=== PATIENT | male | born 1960 | race Caucasian/White ===

== ENCOUNTER 2017-03-27 08:59 | Day surgery (SDC) | payer OTHER ==
[~2017-03-27 08:59] MED LIST: Lactated Ringers 1,000 ML IV SCH; Lidocaine 1%/Sod Bicarbonate in NS 8.4% 1 ML Syringe PRN; Sodium Chloride 0.9% 10 ML Syringe FLUSH PRN
--- NOTE | 2017-03-27 10:09 | PCM.PREANE ---
Preanesthetic Assessment - Procedure Proposed Procedure: Diagnostic EGD - Anesthesia/Transfusion/Family Hx Anesthesia History: Prior Anesthesia Without Reaction Family History of Anesthesia Reaction: No Transfusion History: No Prior Transfusion(s) - Review of Systems General: No Symptoms Pulmonary: Other (NATASHA with CPAP) Cardiovascular: No Symptoms Gastrointestinal: Other (GERD) Neurological: No Symptoms Other: Reports: None - Physical Assessment NPO Status Date: 03/26/17 NPO Status Time: 20:00 O2 Sat by Pulse Oximetry: 96 Respiratory Rate: 16 Vital Signs: Last Vital Signs Temp 36.6 C 03/27/17 09:05 Pulse 69 03/27/17 09:05 Resp 16 03/27/17 09:05 BP 156/86 H 03/27/17 09:05 Pulse Ox 96 03/27/17 09:05 Height: 1.75 m Weight: 75.75 kg ASA Class: 2 Mental Status: Alert & Oriented x3 Airway Class: Mallampati = 2 Dentition: Reports: Normal Dentition Thyro-Mental Finger Breadths: 3 Mouth Opening Finger Breadths: 3 ROM/Head Extension: Full Lungs: Clear to auscultation, Normal respiratory effort Cardiovascular: Regular Rate, Regular Rhythm - Allergies Allergies/Adverse Reactions: Allergies Allergy/AdvReac Type Severity Reaction Status Date / Time No Known Allergies Allergy Verified 03/24/17 11:17 - Blood Blood Available: No Product(s) Available: None - Acknowledgements Anesthesia Type Planned: MAC Pt an Appropriate Candidate for the Planned Anesthesia: Yes Alternatives and Risks of Anesthesia Discussed w Pt/Guardian: Yes Pt/Guardian Understands and Agrees with Anesthesia Plan: Yes PreAnesthesia Questionnaire Respiratory History: Reports: Sleep Apnea - Past Surgical History GI Surgical History: Reports: Appendectomy Neurological Surgical History: Reports: Other (See Below) Other Neurological Surgeries/Procedures: 2 back surgeries, neck surgery Musculoskeletal Surgical History: Reports: Carpal Tunnel, Other (See Below) Other Musculoskeletal Surgeries/Procedures:: bilateral carpal tunnel, toe surgery - SUBSTANCE USE Smoking Status *Q: Never Smoker Second Hand Smoke Exposure: No Recreational Drug Use History: No - HOME MEDS Home Medications: Home Meds Meloxicam 15 mg PO DAILY 03/24/17 [History] traZODone 50 mg PO DAILY 03/24/17 [History] - CURRENT (IN HOUSE) MEDS Current Meds: Current Medications Lactated Ringer's (Ringers, Lactated) 1,000 mls @ 125 mls/hr IV ASDIRECTED KEVIN Stop: 03/27/17 23:00 Lidocaine/Sodium Bicarbonate (Buffered Lidocaine 1% In Ns 8.4%) 0.25 ml .XX ONETIME PRN PRN Reason: Prior to IV Start Stop: 03/27/17 18:00 Sodium Chloride (Saline Flush) 10 ml FLUSH ASDIRECTED PRN PRN Reason: Keep Vein Open Stop: 03/27/17 18:00
[2017-03-27] MEDS ORDERED: fentaNYL 100 MCG/2 ML SDV ONE (10:51)
[2017-03-27] MEDS ORDERED: Propofol 200 MG/20 ML SDV ONE (10:51)
[2017-03-27] MEDS ORDERED: Midazolam 1 MG/ML 2 ML SDV ONE (10:52)
--- NOTE | 2017-03-27 11:03 | PCM.OPNOTE ---
- General Post-Op/Procedure Note Date of Surgery/Procedure: 03/27/17 Operative Procedure(s): egd with bx Pre Op Diagnosis: gerd Post-Op Diagnosis: Same Anesthesia Technique: MAC Primary Surgeon: Massimo Sun Complications: None Condition: Good
--- NOTE | 2017-03-27 11:08 | PCM48HPAN ---
Post Anesthesia Note - EVALUATION WITHIN 48HRS OF ANESTHETIC Vital Signs in Normal Range: Yes Patient Participated in Evaluation: Yes Respiratory Function Stable: Yes Airway Patent: Yes Cardiovascular Function Stable: Yes Hydration Status Stable: Yes Pain Control Satisfactory: Yes Nausea and Vomiting Control Satisfactory: Yes Mental Status Recovered: Yes
[2017-03-27 11:44] VITALS: BP 137/92
--- NOTE | 2017-03-28 07:31 | OR ---
DATE OF OPERATION: 03/27/2017 SURGEON: Massimo Sun MD PREOPERATIVE DIAGNOSIS: Gastroesophageal reflux disease, unresponsive to proton pump inhibitors. POSTOPERATIVE DIAGNOSIS: Gastroesophageal reflux disease, unresponsive to proton pump inhibitors. OPERATION PERFORMED: Esophagogastroduodenoscopy with biopsy. FINDINGS: There were mild incompetent hiatus with irregular GE junction which suspected the erosions. Second portion of the duodenum, duodenal bulb, pyloric channel, antrum, body and cardia of the stomach and fundus and balance esophagus free of any acute disease. ANESTHESIA: IV sedation. DESCRIPTION OF PROCEDURE: The patient was taken to the GI room, connected to monitoring equipment, given IV sedation, placed in left lateral position. Bite block was inserted. Video Olympus gastroscope was placed in the posterior oropharynx under direct vision, threaded past the cricopharyngeus, down the esophagus, into the stomach. The stomach was insufflated and the scope passed through the pylorus to the second portion of the duodenum. The second portion of the duodenum and duodenal bulb were unremarkable as was the antrum, body, cardia, stomach, and fundus. J- maneuver did not show hiatal hernia. Scope was withdrawn to the GE junction which is irregular and some erosions and multiple biopsies were taken of this area. This was located at about 42 cm. Rest of the esophagus was viewed as the scope withdrawn unremarkable. The patient tolerated the procedure, sent to recovery room in a stable condition, to be followed up in the clinic. ESTIMATED BLOOD LOSS: MMODAL /[id number]
== END 2017-03-27 11:47 | disposition home or self-care (01) ==
LOC: JD.SDS 08:59
PROVIDERS: ATTEND Surgery
DX: K31.89 Other diseases of stomach and duodenum (principal); K21.9 Gastro-esophageal reflux disease without esophagitis; G47.33 Obstructive sleep apnea (adult) (pediatric); Z90.49 Acquired absence of other specified parts of digestive tract; Z98.890 Other specified postprocedural states; Z79.899 Other long term (current) drug therapy; Z87.891 Personal history of nicotine dependence
CPT/HCPCS: 43239; J2250; J3010; J7120; 88305; J2704

== ENCOUNTER 2017-04-19 07:16 | Day surgery (SDC) | payer OTHER ==
[~2017-04-19 07:16] MED LIST changes: +Bupivacaine 0.5%/EPINEPHrine 1:200,000 50 ML MDV ONE; +Lidocaine 1% with EPINEPHrine 1:100,000 20 ML MDV ONE
[2017-04-19] MEDS ORDERED: Propofol 200 MG/20 ML SDV ONE (07:19)
[2017-04-19] MEDS ORDERED: fentaNYL 250 MCG/5 ML SDV ONE (07:19)
[2017-04-19] MEDS ORDERED: Rocuronium 50 MG/5 ML Vial ONE (07:19)
[2017-04-19] MEDS ORDERED: ceFAZolin 1 GM Vial ONE ×2 (07:20→07:21)
--- NOTE | 2017-04-19 07:41 | PCM.PREANE ---
Preanesthetic Assessment - Anesthesia/Transfusion/Family Hx Anesthesia History: Prior Anesthesia Without Reaction Family History of Anesthesia Reaction: No Transfusion History: No Prior Transfusion(s) Intubation History: Unknown - Review of Systems General: No Symptoms Pulmonary: No Symptoms Cardiovascular: No Symptoms Gastrointestinal: No symptoms Neurological: No Symptoms Other: Reports: None - Physical Assessment NPO Status Date: 04/18/17 NPO Status Time: 20:00 Pulse: 70 O2 Sat by Pulse Oximetry: 98 Respiratory Rate: 16 Blood Pressure: 134/86 Temperature: 97.4 C Height: 1.75 m Weight: 75.75 kg ASA Class: 2 Mental Status: Alert & Oriented x3 Airway Class: Mallampati = 2 Dentition: Reports: Normal Dentition Thyro-Mental Finger Breadths: 3 Mouth Opening Finger Breadths: 3 ROM/Head Extension: Full Lungs: Clear to auscultation, Normal respiratory effort Cardiovascular: Regular Rate, Regular Rhythm - Allergies Allergies/Adverse Reactions: Allergies Allergy/AdvReac Type Severity Reaction Status Date / Time No Known Allergies Allergy Verified 04/18/17 15:56 - Acknowledgements Anesthesia Type Planned: General Anesthesia Pt an Appropriate Candidate for the Planned Anesthesia: Yes Alternatives and Risks of Anesthesia Discussed w Pt/Guardian: Yes Pt/Guardian Understands and Agrees with Anesthesia Plan: Yes PreAnesthesia Questionnaire HEENT History: Reports: Allergic Rhinitis, Hard of Hearing, Other (See Below) Other HEENT History: tinnitus, hearing loss, has bilateral hearing aids (doesn' t wear often) Cardiovascular History: Reports: None Respiratory History: Reports: Sleep Apnea (CPAP) Gastrointestinal History: Reports: Cholelithiasis, Colon Polyp, GERD, Other ( See Below) Other Gastrointestinal History: gallbladder polyps, esohpagitis Genitourinary History: Reports: BPH, Other (See Below) Other Genitourinary History: decreased urine output ELECTROLYTIC ETCHER History: Reports: None Musculoskeletal History: Reports: Arthritis, Other (See Below) (low back pain, back surgery x2, neck surgery C2-3 FROM noted) Other Musculoskeletal History: neck pain, bicipital tendinitis, should pain, low back pain, foot pain, chronic pain syndrom, carpal tunnel syndrome Neurological History: Reports: Migraines Psychiatric History: Reports: Depression, Other (See Below) Other Psychiatric History: etoh abuse history, insomnia Endocrine/Metabolic History: Reports: None Hematologic History: Reports: None Immunologic History: Reports: None Oncologic (Cancer) History: Reports: None Dermatologic History: Reports: Eczema - Past Surgical History Head Surgeries/Procedures: Reports: None HEENT Surgical History: Reports: Adenoidectomy, Tonsillectomy Cardiovascular Surgical History: Reports: None Respiratory Surgical History: Reports: None GI Surgical History: Reports: Appendectomy, Colonoscopy, EGD Female Surgical History: Reports: None Male Surgical History: Reports: None Endocrine Surgical History: Reports: None Neurological Surgical History: Reports: C-Spine (back x 2, neck C2-3), Other ( See Below) Other Neurological Surgeries/Procedures: 2 back surgeries, neck surgery c3-c4 fusion Musculoskeletal Surgical History: Reports: Carpal Tunnel, Shoulder Replacement ( (R) rotator cuff), Other (See Below) Other Musculoskeletal Surgeries/Procedures:: bilateral carpal tunnel, toe surgery, foot surgery, low back surgery x2 (L2-L5) neck surgery, shoulder surgery Oncologic Surgical History: Reports: None Dermatological Surgical History: Reports: None - Past Imaging History Past Imaging History: Reports: None, Sleep Study - SUBSTANCE USE Smoking Status *Q: Former Smoker (pt quit smoking x1 month) Second Hand Smoke Exposure: No Recreational Drug Use History: No - HOME MEDS Home Medications: Home Meds Meloxicam 15 mg PO DAILY 03/24/17 [History] Terazosin HCl [Terazosin] 2 mg PO BEDTIME 03/27/17 [History] Ascorbic Acid 500 mg PO DAILY 04/18/17 [History] Ca Carbonate/Vitamin D3/Vit K [Calcium + D Soft Chewable Tab] 1 tab PO BID 04/18 [History] Capsaicin 1 applic TOP BID PRN 04/18/17 [History] Clobetasol Propionate [Temovate] 1 applic TOP BID PRN 04/18/17 [History] Cyclobenzaprine [Flexeril] 10 mg PO BEDTIME PRN 04/18/17 [History] Echinacea [Echinacea Extract] 125 mg PO DAILY 04/18/17 [History] Ketoconazole 1 applic TOP DAILY PRN 04/18/17 [History] Multivitamin [Multivitamins] 1 tab PO DAILY 04/18/17 [History] Omeprazole 20 mg PO BID 04/18/17 [History] Ranitidine HCl [Zantac] 150 mg PO BID 04/18/17 [History] SUMAtriptan Succinate [Imitrex] 100 mg PO ASDIRECTED PRN 04/18/17 [History] Zinc Sulfate 220 mg PO DAILY 04/18/17 [History] traZODone HCl [Trazodone HCl] 150 mg PO BEDTIME 04/18/17 [History] - CURRENT (IN HOUSE) MEDS Current Meds: Current Medications Lactated Ringer's (Ringers, Lactated) 1,000 mls @ 125 mls/hr IV ASDIRECTED KEVIN Stop: 04/19/17 23:00 Lidocaine/Sodium Bicarbonate (Buffered Lidocaine 1% In Ns 8.4%) 0.25 ml .XX ONETIME PRN PRN Reason: Prior to IV Start Stop: 04/19/17 18:00 Sodium Chloride (Saline Flush) 10 ml FLUSH ASDIRECTED PRN PRN Reason: Keep Vein Open Stop: 04/19/17 18:00 Discontinued Medications Bupivacaine HCl/Epinephrine Bitart (Marcaine 0.5%/Epinephrine 1:200,000) Confirm Administered Dose 50 ml .ROUTE .STK-MED ONE Stop: 04/19/17 07:17 Cefazolin Sodium (Ancef) Confirm Administered Dose 1 gm .ROUTE .STK-MED ONE Stop: 04/19/17 07:21 Cefazolin Sodium (Ancef) Confirm Administered Dose 1 gm .ROUTE .STK-MED ONE Stop: 04/19/17 07:22 Fentanyl (Sublimaze) Confirm Administered Dose 250 mcg .ROUTE .STK-MED ONE Stop: 04/19/17 07:20 Lidocaine/Epinephrine (Xylocaine 1% With Epinephrine 1:100,000) Confirm Administered Dose 20 ml .ROUTE .STK-MED ONE Stop: 04/19/17 07:16 Propofol (Diprivan 20 Ml) Confirm Administered Dose 200 mg .ROUTE .STK-MED ONE Stop: 04/19/17 07:20 Rocuronium [place] (Zemuron) Confirm Administered Dose 50 mg .ROUTE .STK-MED ONE Stop: 04/19/17 07:20
--- NOTE | 2017-04-19 07:48 | PCM.PREANE ---
Preanesthetic Assessment - Anesthesia/Transfusion/Family Hx Anesthesia History: Prior Anesthesia Without Reaction Family History of Anesthesia Reaction: No Transfusion History: No Prior Transfusion(s) Intubation History: Unknown - Review of Systems Cardiovascular: No Symptoms, Other (EKG ordered per Dr Salvador. Awaiting prior to taking pt back to OR) Other: Reports: None - Physical Assessment NPO Status Date: 04/18/17 NPO Status Time: 20:00 Pulse: 70 O2 Sat by Pulse Oximetry: 98 Respiratory Rate: 16 Blood Pressure: 134/86 Temperature: 97.4 C Vital Signs: Last Vital Signs Temp 97.4 C H 04/19/17 07:45 Pulse 70 04/19/17 07:45 Resp 16 04/19/17 07:45 BP 134/86 04/19/17 07:45 Pulse Ox 98 04/19/17 07:45 Height: 1.75 m Weight: 75.75 kg - Allergies Allergies/Adverse Reactions: Allergies Allergy/AdvReac Type Severity Reaction Status Date / Time No Known Allergies Allergy Verified 04/18/17 15:56 PreAnesthesia Questionnaire HEENT History: Reports: Allergic Rhinitis, Hard of Hearing, Other (See Below) Other HEENT History: tinnitus, hearing loss, has bilateral hearing aids (doesn' t wear often) Cardiovascular History: Reports: None Respiratory History: Reports: Sleep Apnea (CPAP) Gastrointestinal History: Reports: Cholelithiasis, Colon Polyp, GERD, Other ( See Below) Other Gastrointestinal History: gallbladder polyps, esohpagitis Genitourinary History: Reports: BPH, Other (See Below) Other Genitourinary History: decreased urine output TREE THINNER History: Reports: None Musculoskeletal History: Reports: Arthritis, Other (See Below) (low back pain, back surgery x2, neck surgery C2-3 FROM noted) Other Musculoskeletal History: neck pain, bicipital tendinitis, should pain, low back pain, foot pain, chronic pain syndrom, carpal tunnel syndrome Neurological History: Reports: Migraines Psychiatric History: Reports: Depression, Other (See Below) Other Psychiatric History: etoh abuse history, insomnia Endocrine/Metabolic History: Reports: None Hematologic History: Reports: None Immunologic History: Reports: None Oncologic (Cancer) History: Reports: None Dermatologic History: Reports: Eczema - Past Surgical History Head Surgeries/Procedures: Reports: None HEENT Surgical History: Reports: Adenoidectomy, Tonsillectomy Cardiovascular Surgical History: Reports: None Respiratory Surgical History: Reports: None GI Surgical History: Reports: Appendectomy, Colonoscopy, EGD Female Surgical History: Reports: None Male Surgical History: Reports: None Endocrine Surgical History: Reports: None Neurological Surgical History: Reports: C-Spine (back x 2, neck C2-3), Other ( See Below) Other Neurological Surgeries/Procedures: 2 back surgeries, neck surgery c3-c4 fusion Musculoskeletal Surgical History: Reports: Carpal Tunnel, Shoulder Replacement ( (R) rotator cuff), Other (See Below) Other Musculoskeletal Surgeries/Procedures:: bilateral carpal tunnel, toe surgery, foot surgery, low back surgery x2 (L2-L5) neck surgery, shoulder surgery Oncologic Surgical History: Reports: None Dermatological Surgical History: Reports: None - Past Imaging History Past Imaging History: Reports: None, Sleep Study - SUBSTANCE USE Smoking Status *Q: Former Smoker (pt quit smoking x1 month) Second Hand Smoke Exposure: No Recreational Drug Use History: No - HOME MEDS Home Medications: Home Meds Meloxicam 15 mg PO DAILY 03/24/17 [History] Terazosin HCl [Terazosin] 2 mg PO BEDTIME 03/27/17 [History] Ascorbic Acid 500 mg PO DAILY 04/18/17 [History] Ca Carbonate/Vitamin D3/Vit K [Calcium + D Soft Chewable Tab] 1 tab PO BID 04/18 [History] Capsaicin 1 applic TOP BID PRN 04/18/17 [History] Clobetasol Propionate [Temovate] 1 applic TOP BID PRN 04/18/17 [History] Cyclobenzaprine [Flexeril] 10 mg PO BEDTIME PRN 04/18/17 [History] Echinacea [Echinacea Extract] 125 mg PO DAILY 04/18/17 [History] Ketoconazole 1 applic TOP DAILY PRN 04/18/17 [History] Multivitamin [Multivitamins] 1 tab PO DAILY 04/18/17 [History] Omeprazole 20 mg PO BID 04/18/17 [History] Ranitidine HCl [Zantac] 150 mg PO BID 04/18/17 [History] SUMAtriptan Succinate [Imitrex] 100 mg PO ASDIRECTED PRN 04/18/17 [History] Zinc Sulfate 220 mg PO DAILY 04/18/17 [History] traZODone HCl [Trazodone HCl] 150 mg PO BEDTIME 04/18/17 [History] - CURRENT (IN HOUSE) MEDS Current Meds: Current Medications Lactated Ringer's (Ringers, Lactated) 1,000 mls @ 125 mls/hr IV ASDIRECTED KEVIN Stop: 04/19/17 23:00 Lidocaine/Sodium Bicarbonate (Buffered Lidocaine 1% In Ns 8.4%) 0.25 ml .XX ONETIME PRN PRN Reason: Prior to IV Start Stop: 04/19/17 18:00 Sodium Chloride (Saline Flush) 10 ml FLUSH ASDIRECTED PRN PRN Reason: Keep Vein Open Stop: 04/19/17 18:00 Discontinued Medications Bupivacaine HCl/Epinephrine Bitart (Marcaine 0.5%/Epinephrine 1:200,000) Confirm Administered Dose 50 ml .ROUTE .STK-MED ONE Stop: 04/19/17 07:17 Cefazolin Sodium (Ancef) Confirm Administered Dose 1 gm .ROUTE .STK-MED ONE Stop: 04/19/17 07:21 Cefazolin Sodium (Ancef) Confirm Administered Dose 1 gm .ROUTE .STK-MED ONE Stop: 04/19/17 07:22 Fentanyl (Sublimaze) Confirm Administered Dose 250 mcg .ROUTE .STK-MED ONE Stop: 04/19/17 07:20 Lidocaine/Epinephrine (Xylocaine 1% With Epinephrine 1:100,000) Confirm Administered Dose 20 ml .ROUTE .STK-MED ONE Stop: 04/19/17 07:16 Propofol (Diprivan 20 Ml) Confirm Administered Dose 200 mg .ROUTE .STK-MED ONE Stop: 04/19/17 07:20 Rocuronium [place] (Zemuron) Confirm Administered Dose 50 mg .ROUTE .STK-MED ONE Stop: 04/19/17 07:20
[2017-04-19] MEDS ORDERED: fentaNYL 100 MCG/2 ML SDV ONE (08:41)
[2017-04-19] MEDS ORDERED: HYDROmorphone 1 MG/ML Syringe ONE (08:42)
[2017-04-19] MEDS ORDERED: Lactated Ringers 1,000 ML ONE (08:43)
[2017-04-19] MEDS ORDERED: fentaNYL 100 MCG/2 ML SDV IVPUSH PRN (08:44)
[2017-04-19] MEDS ORDERED: Ondansetron 4 MG/2 ML SDV IVPUSH PRN (08:44)
[2017-04-19] MEDS ORDERED: HYDROmorphone 0.5 MG/0.5 ML Syringe IVPUSH PRN (08:44)
[2017-04-19] MEDS ORDERED: Meperidine PF 50 MG/ML Syringe IVPUSH PRN (08:44)
--- NOTE | 2017-04-19 09:39 | PCM.POSTAN ---
POST ANESTHESIA ASSESSMENT - MENTAL STATUS Mental Status: alert, oriented - VITAL SIGNS Pulse Rate: 104 SaO2: 96 Resp Rate: 11 Blood Pressure: 134/76 Temperature: 98.8 C - RESPIRATORY Respiratory Status: respiratory rate WNL, airway patent, O2 saturation stable, supplemental oxygen (pt c/o sore throat, explanation given re difficult intubation, no other surgical pain noted ) - CARDIOVASCULAR CV Status: pulse rate WNL, blood pressure stable - GASTROINTESTINAL GI Status: no symptoms - POST OP HYDRATION Hydration Status: adequate & stable
--- NOTE | 2017-04-19 09:53 | PCM.OPNOTE ---
- General Post-Op/Procedure Note Date of Surgery/Procedure: 04/19/17 Operative Procedure(s): 1. Laparoscopic cholecystectomy. 2. Supraumbilical hernia repair Findings: 1. Diastases recti 2. Small supraumbilical hernia containing herniated peritoneal fat through a 6 mm defect 3. Chronic cholecystitis with no polyp or stone seen within the gallbladder Pre Op Diagnosis: Biliary colic secondary to a polyp or adherent stone Post-Op Diagnosis: 1. Chronic cholecystitis. 2. Supraumbilical hernia Anesthesia Technique: General ET Tube, Local Primary Surgeon: Andrew Salvador Pathology: Gallbladder and contents EBL in mLs: 2 Complications: None Condition: Good Free Text/Narrative:: After adequate general endotracheal tube anesthesia was obtained the patient's abdomen was prepped and draped sterilely for the procedure. A supraumbilical incision was made after local analgesia with a 15 blade. This incision was deepened to the fascia where I saw a small herniated piece of fat through a 6 mm defect. I dissected away the fat from the surrounding fascial margin and reduced the herniation. I then used a 15 blade to extend the incision from the defect for about a centimeter to allow for insertion of a 12 mm camera port. This was inserted followed by CO2 pneumoperitoneum. 3 - 5 mm working ports were placed along the right subcostal margin. The dome of the gallbladder was grasped and it along with the liver were raised in a cephalad direction. Remy's pouch was grasped and then I dissected out the cystic duct and cystic artery with hook cautery. The structures were clipped in continuity with 5 mm clips. They were divided with scissors. I then took the gallbladder down in a retrograde fashion and removed it in a back to the umbilicus. There was some slight venous bleeding from the gallbladder. There was no bile leak or bile duct injury that was seen. There was no bowel injury. The abdomen was decannulated under direct vision with no bleeding from the port sites. The hernia along with the port site were closed with a single [id number] 0 Vicryl suture. The subcutaneous tissues were closed with 3-0 Vicryl. The skin was closed with subcuticular Monocryl. The 5 mm sites were closed with a single 4-0 interrupted nylon. Gauze was used for the dressing. There were no complications.
--- NOTE | 2017-04-19 10:19 | PCM48HPAN ---
Post Anesthesia Note - EVALUATION WITHIN 48HRS OF ANESTHETIC Vital Signs in Normal Range: Yes Patient Participated in Evaluation: Yes Respiratory Function Stable: Yes Airway Patent: Yes (pt informed of difficult airway and the need for the glidescope) Cardiovascular Function Stable: Yes Hydration Status Stable: Yes Pain Control Satisfactory: Yes (instructed to suck on hard candy, keep throat wet for sore throat) Nausea and Vomiting Control Satisfactory: Yes Mental Status Recovered: Yes
[2017-04-19] MEDS ORDERED: Acetaminophen/oxyCODONE 325-5 MG Tab PO ONE (11:15)
[2017-04-19 11:56] VITALS: BP 125/83
== END 2017-04-19 12:00 | disposition home or self-care (01) ==
LOC: JD.SDS 07:16
PROVIDERS: ATTEND Surgery
PROC: 0FT44ZZ Resection of Gallbladder, Percutaneous Endoscopic Approach (ICD-10-PCS; principal; 2017-04-19)
PROC: 0WQF0ZZ Repair Abdominal Wall, Open Approach (ICD-10-PCS; 2017-04-19)
DX: K81.1 Chronic cholecystitis (principal); K43.9 Ventral hernia without obstruction or gangrene; G47.30 Sleep apnea, unspecified; N40.0 Benign prostatic hyperplasia without lower urinary tract symptoms; M19.90 Unspecified osteoarthritis, unspecified site; G43.909 Migraine, unspecified, not intractable, without status migrainosus; F32.9 Major depressive disorder, single episode, unspecified; K21.9 Gastro-esophageal reflux disease without esophagitis; Z87.19 Personal history of other diseases of the digestive system; Z87.891 Personal history of nicotine dependence; Z99.89 Dependence on other enabling machines and devices; Z96.611 Presence of right artificial shoulder joint; Z90.49 Acquired absence of other specified parts of digestive tract; Z90.89 Acquired absence of other organs; Z98.890 Other specified postprocedural states; Z79.899 Other long term (current) drug therapy
CPT/HCPCS: 47562; 49585; 88304; 93005; A9270; J0690; J1170; J3010; J7120; 00790; J2704

== ENCOUNTER 2018-11-01 05:58 | Day surgery (SDC) | payer OTHER ==
[2018-11-01] MEDS ORDERED: Bupivacaine 0.25% 30 ML SDV ONE (06:20)
[2018-11-01] MEDS ORDERED: Triamcinolone Acetonide 40 MG/ML 1 ML MDV ONE (06:20)
[2018-11-01] MEDS ORDERED: Lidocaine 1% 30 ML SDV ONE (06:20)
--- NOTE | 2018-11-01 06:33 | PCM.PREANE ---
Preanesthetic Assessment - Anesthesia/Transfusion/Family Hx Anesthesia History: Prior Anesthesia Without Reaction Family History of Anesthesia Reaction: No Transfusion History: Prior Transfusion Without Reaction Intubation History: Unknown - Review of Systems General: No Symptoms (Recent cold and placed on Augmentin, symptoms resolved) Pulmonary: No Symptoms (NATASHA- CPAP/Smoker: Quit a few years ago History of ETOH abuse: (occasionally)) Cardiovascular: No Symptoms Gastrointestinal: No Symptoms (GERD) Neurological: No Symptoms (Back surgery and neck surgery), Headache (Migraines) , Numbness (Right thigh paresthesia's noted, with lower back pain noted.) Other: Reports: Sinus Problem (allergic rhinitis), Neck Pain (Fusion of C5&C6: no pain currently and excellent extension noted) - Physical Assessment NPO Status Date: 10/31/18 NPO Status Time: 20:00 Pulse: 66 O2 Sat by Pulse Oximetry: 94 Respiratory Rate: 17 Blood Pressure: 120/87 Temperature: 36.7 C Height: 1.75 m Weight: 78 kg ASA Class: 2 Mental Status: Alert & Oriented x3 Airway Class: Mallampati = 2 Dentition: Reports: Normal Dentition, Caries Thyro-Mental Finger Breadths: 3 ROM/Head Extension: Full Lungs: Clear to Auscultation, Normal Respiratory Effort Cardiovascular: Regular Rate, Regular Rhythm, No Murmurs - Lab Values: MRSA is negative. All labs reviewed and noted and within acceptable ranges to proceed with scheduled procedure. - Imaging/EKG Impressions: EKG: NSR, abnormal questionable inferior infarct/septal- cleared by [facility] - Allergies Allergies/Adverse Reactions: Allergies Allergy/AdvReac Type Severity Reaction Status Date / Time No Known Allergies Allergy Verified 10/31/18 13:08 - Anesthesia Plan Pre-Op Medication Ordered: None - Acknowledgements Anesthesia Type Planned: MAC Pt an Appropriate Candidate for the Planned Anesthesia: Yes Alternatives and Risks of Anesthesia Discussed w Pt/Guardian: Yes Pt/Guardian Understands and Agrees with Anesthesia Plan: Yes PreAnesthesia Questionnaire HEENT History: Reports: Allergic Rhinitis, Hard of Hearing, Other (See Below) Other HEENT History: tinnitus, hearing loss, has bilateral hearing aids (doesn' t wear often) Cardiovascular History: Reports: None Respiratory History: Reports: Sleep Apnea Gastrointestinal History: Reports: Cholelithiasis, Colon Polyp, GERD, Other ( See Below) Other Gastrointestinal History: gallbladder polyps, esohpagitis Genitourinary History: Reports: BPH, Other (See Below) Other Genitourinary History: decreased urine output 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: 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 Musculoskeletal History: Reports: Arthritis, Other (See Below) Other Musculoskeletal History: neck pain, bicipital tendinitis, should pain, low back pain, foot pain, chronic pain syndrom, carpal tunnel syndrome Neurological History: Reports: Migraines Psychiatric History: Reports: Depression, Other (See Below) Other Psychiatric History: etoh abuse history, insomnia Endocrine/Metabolic History: Reports: None Hematologic History: Reports: None Immunologic History: Reports: None Oncologic (Cancer) History: Reports: None Dermatologic History: Reports: Eczema - Past Surgical History Head Surgeries/Procedures: Reports: None HEENT Surgical History: Reports: Adenoidectomy, Naso-Sinus Surgery, Tonsillectomy Cardiovascular Surgical History: Reports: None Respiratory Surgical History: Reports: None GI Surgical History: Reports: Appendectomy, Cholecystectomy, Colonoscopy, EGD Female Surgical History: Reports: None Male Surgical History: Reports: None Endocrine Surgical History: Reports: None Neurological Surgical History: Reports: C-Spine, Other (See Below) Other Neurological Surgeries/Procedures: 2 back surgeries, neck surgery c3-c4 fusion Musculoskeletal Surgical History: Reports: Carpal Tunnel, Shoulder Replacement, Other (See Below) Other Musculoskeletal Surgeries/Procedures:: bilateral carpal tunnel, toe surgery, foot surgery, low back surgery x2 (L2-L5) neck surgery, shoulder surgery Oncologic Surgical History: Reports: None Dermatological Surgical History: Reports: None - Past Imaging History Past Imaging History: Reports: None, Sleep Study - SUBSTANCE USE Smoking Status *Q: Former Smoker Recreational Drug Use History: No - HOME MEDS Home Medications: Home Meds Meloxicam 15 mg PO DAILY 03/24/17 [History] Clobetasol Propionate [Temovate 0.05% Oint] 1 applic TOP BID PRN 04/18/17 [ History] Cyclobenzaprine [Flexeril] 10 mg PO BEDTIME PRN 04/18/17 [History] Echinacea Purpurea,Angustif Xt [Echinacea Extract 125 mg Cap] 125 mg PO DAILY [History] Ketoconazole 1 applic TOP DAILY PRN 04/18/17 [History] Multivitamin [Multivitamins] 1 tab PO DAILY 07/18/17 [History] Omeprazole 20 mg PO DAILY 04/18/17 [History] Ranitidine HCl [Zantac] 150 mg PO BID 04/18/17 [History] SUMAtriptan Succinate [Imitrex] 100 mg PO ASDIRECTED PRN 04/18/17 [History] Zinc Sulfate 220 mg PO DAILY 04/18/17 [History] traZODone HCl [Trazodone HCl] 150 mg PO BEDTIME 04/18/17 [History] Gabapentin [Neurontin] 900 mg PO TID PRN 10/31/18 [History] Lidocaine 5% [Lidoderm 5%] 1 patch TOP Q12H PRN 10/31/18 [History] Tamsulosin [Flomax] 0.4 mg PO DAILY 10/31/18 [History] guaiFENesin [Mucinex] 600 mg PO QAM 10/31/18 [History] traMADol [Ultram] 50 - 100 mg PO Q6H PRN #20 tab 11/01/18 [Rx] - CURRENT (IN HOUSE) MEDS Current Meds: Current Medications Lactated Ringer's (Ringers, Lactated) 1,000 mls @ 125 mls/hr IV ASDIRECTED KEVIN Stop: 11/01/18 23:00 Lidocaine/Sodium Bicarbonate (Buffered Lidocaine 1% In Ns 8.4%) 0.25 ml IDERM ONETIME PRN PRN Reason: Prior to IV Start Stop: 11/01/18 18:00 Sodium Chloride (Saline Flush) 10 ml FLUSH ASDIRECTED PRN PRN Reason: Keep Vein Open Stop: 11/01/18 18:00 Discontinued Medications Bupivacaine HCl (Marcaine 0.25%) Confirm Administered Dose 30 ml .ROUTE .STK- MED ONE Stop: 11/01/18 06:21 Lidocaine HCl (Xylocaine-Mpf 1%) Confirm Administered Dose 30 ml .ROUTE .STK- MED ONE Stop: 11/01/18 06:21 Triamcinolone Acetonide (Kenalog-40) Confirm Administered Dose 80 mg .ROUTE .STK -MED ONE Stop: 11/01/18 06:21
[2018-11-01] MEDS ORDERED: Lidocaine 1% 6 ML ONE (06:52)
[2018-11-01] MEDS ORDERED: Propofol 200 MG/20 ML SDV ONE (06:52)
[2018-11-01] MEDS ORDERED: Ondansetron 4 MG/2 ML SDV ONE (06:52)
[2018-11-01] MEDS ORDERED: Midazolam 1 MG/ML 2 ML SDV ONE (06:53)
[2018-11-01] MEDS ORDERED: fentaNYL 100 MCG/2 ML SDV ONE (06:53)
[2018-11-01] MEDS ORDERED: Lidocaine 1%/Sod Bicarbonate in NS 8.4% 1 ML Syringe IDERM PRN (07:00)
[2018-11-01] MEDS ORDERED: Sodium Chloride 0.9% 10 ML Syringe FLUSH PRN (07:00)
[2018-11-01] MEDS ORDERED: Lactated Ringers 1,000 ML IV SCH (07:00)
[2018-11-01] MEDS ORDERED: HYDROmorphone 0.5 MG/0.5 ML Syringe IVPUSH PRN (07:28)
[2018-11-01] MEDS ORDERED: fentaNYL 100 MCG/2 ML SDV IVPUSH PRN (07:28)
[2018-11-01] MEDS ORDERED: diphenhydrAMINE 50 MG/ML SDV IVPUSH PRN (07:28)
[2018-11-01] MEDS ORDERED: Lactated Ringers 1,000 ML ONE (07:29)
--- NOTE | 2018-11-01 07:59 | PCM48HPAN ---
Post Anesthesia Note - EVALUATION WITHIN 48HRS OF ANESTHETIC Vital Signs in Normal Range: Yes Patient Participated in Evaluation: Yes Respiratory Function Stable: Yes Airway Patent: Yes Cardiovascular Function Stable: Yes Hydration Status Stable: Yes Pain Control Satisfactory: Yes Nausea and Vomiting Control Satisfactory: Yes Mental Status Recovered: Yes Pulse Rate: 63 SaO2: 94 Resp Rate: 18 Temperature: 36.9 C Blood Pressure: 107/77 Pulse Rate: 63
[2018-11-01 08:21] VITALS: BP 119/81
--- NOTE | 2018-11-09 16:21 | PCM.OPNOTE ---
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
--- NOTE | 2018-11-09 16:56 | OR ---
DATE OF OPERATION: 11/01/2018 SURGEON: Roque Mcclelland MD OPERATION PERFORMED: Right carpal tunnel release with right bone carpometacarpal joint injection. PREOPERATIVE DIAGNOSIS: Right median nerve compression neuropathy and basilar thumb joint arthritis. POSTOPERATIVE DIAGNOSIS: Right median nerve compression neuropathy and basilar thumb joint arthritis. ANESTHESIA: Local MAC. ANESTHESIA PROVIDER: Georgia Randhawa CRNA. ASSITANT: Marii Mendez PA-C. ESTIMATED BLOOD LOSS: Less than 5 mL. COMPLICATIONS: None. CONDITION: Stable. DESCRIPTION OF PROCEDURE: The patient was identified in the preop holding area. Proper site was marked and identified by the surgeon. The patient was taken back to the operating theater where after adequate anesthesia, the patient's right upper extremity was sterilely prepped and draped in the usual sterile fashion. OR time-out was performed. The patient did not receive antibiotics and it is not indicated for soft tissue hand procedure. At this time, the right upper extremity was exsanguinated and an Esmarch was used as a tourniquet on the forearm. At this time, using 1% lidocaine without epinephrine and 0.25% Marcaine without epinephrine, the palmar cutaneous branch of the median nerve was anesthetized and then the incisional site was anesthetized using Forte cardinal line and ulnar border of the fourth digit as reference. Once this had set up, an incision was made. Blunt dissection was taken down to the palmar cutaneous fascia. Palmar cutaneous fascia was incised with a Terry blade. At this time, the transverse carpal ligament was identified. A small rent was made in the transverse carpal ligament with a Terry blade under direct visualization. Resection of the transverse carpal ligament was done distally using tenotomy scissors making sure to stop short of the palmar arch. At this time, attention was turned proximally after it was found to be adequately released. Using the tenotomy scissors keeping the tips ulnar to protect the palmar cutaneous branch of the median nerve, the superficial forearm fascia as well as the transverse carpal ligament were resected proximally. It was found to be adequate release both proximally and distally. At this time, adequate saline was irrigated through the wound. 4-0 nylon sutures were used closure of the skin. The patient was placed in a sterile soft dressing and sent to PACU in stable condition. After this was completed, 1 mL of 40 mg Kenalog and 2 mL of 0.25% Marcaine was injected to the basilar thumb joint of the right thumb. The patient tolerated both procedures well. EILEEN /[id number]
== END 2018-11-01 08:50 | disposition home or self-care (01) ==
LOC: JD.SDS 05:58
PROVIDERS: ATTEND Orthopaedic Surgery
DX: G56.01 Carpal tunnel syndrome, right upper limb (principal); M18.11 Unilateral primary osteoarthritis of first carpometacarpal joint, right hand; G47.33 Obstructive sleep apnea (adult) (pediatric); Z99.89 Dependence on other enabling machines and devices; M81.0 Age-related osteoporosis without current pathological fracture; N40.0 Benign prostatic hyperplasia without lower urinary tract symptoms; J30.9 Allergic rhinitis, unspecified; G47.00 Insomnia, unspecified; K21.9 Gastro-esophageal reflux disease without esophagitis; F32.9 Major depressive disorder, single episode, unspecified; M46.1 Sacroiliitis, not elsewhere classified; Z87.891 Personal history of nicotine dependence; Z79.899 Other long term (current) drug therapy
CPT/HCPCS: 20600; 64721; J2001; J2250; J2405; J2704; J3010; J3301; J3490; J7120; 01810

== ENCOUNTER 2020-12-24 10:49 | Day surgery (SDC) | payer OTHER ==
[~2020-12-24 10:49] MED LIST changes: -Bupivacaine 0.5%/EPINEPHrine 1:200,000 50 ML MDV ONE; -Lidocaine 1% with EPINEPHrine 1:100,000 20 ML MDV ONE; +Lidocaine 1%/Sod Bicarbonate in NS 8.4% 1 ML Syringe IDERM PRN; -Lidocaine 1%/Sod Bicarbonate in NS 8.4% 1 ML Syringe PRN
[2020-12-24] MEDS ORDERED: Bupivacaine 0.25% 10 ML SDV ONE (11:02)
--- NOTE | 2020-12-24 11:12 | PCM.PREANE ---
Preanesthetic Assessment - Procedure Proposed Procedure: right first carpometacarpal joint arthroplasty with trapeziectomy and tightrope suspension - Anesthesia/Transfusion/Family Hx Anesthesia History: Prior Anesthesia Without Reaction Family History of Anesthesia Reaction: No Transfusion History: Prior Transfusion Without Reaction Intubation History: Unknown - Review of Systems General: No Symptoms Pulmonary: No Symptoms Cardiovascular: No Symptoms Gastrointestinal: No Symptoms Neurological: No Symptoms Other: Reports: Neck Pain (neck surgery), Depression (denies) - Physical Assessment NPO Status Date: 12/23/20 NPO Status Time: 19:00 Vital Signs: 144/95 89 97% 14 96.8 Height: 5 ft 9 in Weight: 76.402 kg ASA Class: 2 Mental Status: Alert & Oriented x3 Airway Class: Mallampati = 1 Dentition: Reports: Normal Dentition Thyro-Mental Finger Breadths: 3 Mouth Opening Finger Breadths: 3 ROM/Head Extension: Full Lungs: Clear to Auscultation, Normal Respiratory Effort Cardiovascular: Regular Rate, Regular Rhythm - Lab Values: Laboratory Last Values MRSA (PCR) Positive H 12/11/20 13:55 - Allergies Allergies/Adverse Reactions: Allergies Allergy/AdvReac Type Severity Reaction Status Date / Time No Known Allergies Allergy Verified 12/23/20 11:43 - Blood Blood Available: No - Acknowledgements Anesthesia Type Planned: SASKIA Pt an Appropriate Candidate for the Planned Anesthesia: Yes Alternatives and Risks of Anesthesia Discussed w Pt/Guardian: Yes Pt/Guardian Understands and Agrees with Anesthesia Plan: Yes PreAnesthesia Questionnaire HEENT History: Reports: Allergic Rhinitis, Hard of Hearing, Other (See Below) Other HEENT History: tinnitus, hearing loss, has bilateral hearing aids (doesn't wear often, TMJ disorder Cardiovascular History: Reports: None Respiratory History: Reports: Sleep Apnea, Other (See Below) Other Respiratory History: pulmonary nodule Gastrointestinal History: Reports: Cholelithiasis, Colon Polyp, GERD, Other (See Below) Other Gastrointestinal History: gallbladder polyps, esohpagitis Genitourinary History: Reports: BPH, Other (See Below) Other Genitourinary History: decreased urine output 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 Musculoskeletal History: Reports: Arthritis, Other (See Below) Other Musculoskeletal History: neck pain, bicipital tendinitis, should pain, low back pain, foot pain, chronic pain syndrom, carpal tunnel syndrome Neurological History: Reports: Migraines Psychiatric History: Reports: Depression, Other (See Below) Other Psychiatric History: etoh abuse history, insomnia Endocrine/Metabolic History: Reports: Osteopenia Hematologic History: Reports: None Immunologic History: Reports: None Oncologic (Cancer) History: Reports: None Dermatologic History: Reports: Eczema - Infectious Disease History Infectious Disease History: Reports: None - Past Surgical History Head Surgeries/Procedures: Reports: None HEENT Surgical History: Reports: Adenoidectomy, Naso-Sinus Surgery, Tonsillectomy Cardiovascular Surgical History: Reports: None Respiratory Surgical History: Reports: None GI Surgical History: Reports: Appendectomy, Cholecystectomy, Colonoscopy, EGD Female Surgical History: Reports: None Male Surgical History: Reports: TURP-Transurethral Resection of Prostate Endocrine Surgical History: Reports: None Neurological Surgical History: Reports: C-Spine, Other (See Below) Other Neurological Surgeries/Procedures: 2 back surgeries, neck surgery c3-c4 fusion Musculoskeletal Surgical History: Reports: Carpal Tunnel, Shoulder Replacement, Other (See Below) Other Musculoskeletal Surgeries/Procedures:: bilateral carpal tunnel, toe surgery, foot surgery, low back surgery x2 (L2-L5) neck surgery, shoulder surgery Oncologic Surgical History: Reports: None Dermatological Surgical History: Reports: None - Past Imaging History Past Imaging History: Reports: None, Sleep Study - SUBSTANCE USE Tobacco Use Status *Q: Former Tobacco User Tobacco Use Within Last Twelve Months: No Second Hand Smoke Exposure: Yes Days Per Week of Alcohol Use: 2 Number of Drinks Per Day: 3 Total Drinks Per Week: 6 Recreational Drug Use History: No - HOME MEDS Home Medications: Home Meds Clobetasol Propionate [Temovate 0.05% Oint] 1 applic TOP BID PRN 04/18/17 [History] Ketoconazole 1 applic TOP DAILY PRN 04/18/17 [History] Multivitamin [Multivitamins] 1 tab PO DAILY 04/18/17 [History] SUMAtriptan succinate [Imitrex] 100 mg PO ASDIRECTED PRN 04/18/17 [History] Gabapentin [Neurontin] 600 mg PO BID PRN 10/31/18 [History] Lidocaine 5% [Lidoderm 5%] 1 patch TOP Q12H PRN 10/31/18 [History] Alendronate Sodium [Fosamax] 70 mg PO DAILY 12/23/20 [History] Betamethasone Dipropionate [Diprolene 0.05% Gel] 1 dose TOP BID PRN 12/23/20 [History] Cyclobenzaprine [Flexeril] 10 mg PO Q8H PRN 12/23/20 [History] Diclofenac Sodium [Voltaren 1% Gel] 1 dose TOP QID PRN 12/23/20 [History] Famotidine [Pepcid] 20 mg PO BID 12/23/20 [History] Fluticasone Propionate [Flonase] 1 dose NASBOTH DAILY PRN 12/23/20 [History] Melatonin 10 mg PO BEDTIME PRN 12/23/20 [History] Naproxen 250 mg PO BID PRN 12/23/20 [History] traZODone 50 mg PO BEDTIME 12/23/20 [History] traMADol [Ultram] 50 - 100 mg PO Q6H PRN #30 tab 12/24/20 [Rx] - CURRENT (IN HOUSE) MEDS Current Meds: Current Medications Lactated Ringer's (Ringers, Lactated) 1,000 mls @ 125 mls/hr IV ASDIRECTED KEVIN Stop: 12/24/20 23:00 Vancomycin HCl 1 gm/ Sodium (Chloride) 250 mls @ 250 mls/hr IV ONETIME ONE Stop: 12/24/20 12:14 Last Admin: 12/24/20 10:58 Dose: 250 mls/hr Documented by: Lidocaine/Sodium Bicarbonate (Lidocaine 1%/Sod Bicarbonate In Ns 8.4% 1 Ml Syringe) 0.25 ml IDERM ONETIME PRN PRN Reason: Prior to IV Start Stop: 12/24/20 23:00 Sodium Chloride (Sodium Chloride 0.9% 10 Ml Syringe) 10 ml FLUSH ASDIRECTED PRN PRN Reason: Keep Vein Open Stop: 12/24/20 23:00 Discontinued Medications Bupivacaine HCl (Bupivacaine 0.25% 10 Ml Sdv) Confirm Administered Dose 20 ml .ROUTE .STK-MED ONE Stop: 12/24/20 11:03
[2020-12-24] MEDS ORDERED: fentaNYL 100 MCG/2 ML SDV ONE (11:22)
[2020-12-24] MEDS ORDERED: Ondansetron 4 MG/2 ML SDV ONE (11:22)
[2020-12-24] MEDS ORDERED: Propofol 200 MG/20 ML SDV ONE ×3 (11:22→12:23)
[2020-12-24] MEDS ORDERED: Midazolam 1 MG/ML 2 ML SDV ONE (11:22)
[2020-12-24] MEDS ORDERED: Sodium Bicarbonate 8.4% 50 MEQ/50 ML SDV ONE (11:23)
[2020-12-24] MEDS ORDERED: Lidocaine 0.5% 50 ML SDV ONE (11:23)
[2020-12-24] MEDS ORDERED: Lactated Ringers 1,000 ML ONE (11:56)
[2020-12-24] MEDS ORDERED: Lidocaine 2% 100 MG/5 ML Syringe ONE (12:03)
[2020-12-24] MEDS ORDERED: Lidocaine 1% 2 ML ONE ×2 (12:03)
[2020-12-24] MEDS ORDERED: HYDROmorphone 1 MG/ML Syringe ONE (12:16)
[2020-12-24] MEDS ORDERED: fentaNYL 100 MCG/2 ML SDV IVPUSH PRN (12:19)
[2020-12-24] MEDS ORDERED: diphenhydrAMINE 50 MG/ML SDV IVPUSH PRN (12:19)
[2020-12-24] MEDS ORDERED: Ondansetron 4 MG/2 ML SDV IVPUSH PRN (12:19)
[2020-12-24] MEDS ORDERED: HYDROmorphone 0.5 MG/0.5 ML Syringe IVPUSH PRN (12:19)
[2020-12-24] MEDS ORDERED: Phenylephrine/Normal Saline 100 MCG/ML 10 ML Syringe IVPUSH PRN (12:19)
[2020-12-24] MEDS ORDERED: ePHEDrine 50 MG/ML SDV IVPUSH PRN (12:19)
--- NOTE | 2020-12-24 12:55 | PCM48HPAN ---
Post Anesthesia Note - EVALUATION WITHIN 48HRS OF ANESTHETIC Vital Signs in Normal Range: Yes Patient Participated in Evaluation: Yes Respiratory Function Stable: Yes Airway Patent: Yes Cardiovascular Function Stable: Yes Hydration Status Stable: Yes Pain Control Satisfactory: Yes Nausea and Vomiting Control Satisfactory: Yes Mental Status Recovered: Yes Vital Signs: Last Vital Signs Temp 36.0 C L 12/24/20 11:00 Pulse 59 L 12/24/20 11:00 Resp 14 12/24/20 11:00 BP 144/95 H 12/24/20 11:00 Pulse Ox 97 12/24/20 11:00
--- NOTE | 2020-12-24 13:37 | CR ---
Right hand: 4 fluoroscopic spot views were obtained centered to the first and second digits. Study shows resection of the trapezium. Final film shows anchors between the first and second metacarpals. Fluoroscopy time is given as 7.2 seconds. Impression: 1. Procedural study as noted above. Diagnostic code #2
[2020-12-24 16:43] VITALS: BP 145/105; PULSE 83
--- NOTE | 2021-01-03 20:38 | PCM.OPNOTE ---
- General Post-Op/Procedure Note Date of Surgery/Procedure: 12/24/20 Operative Procedure(s): right wrist trapeziecomty with tight rope suspension arthroplasty Pre Op Diagnosis: right first carpometacarpal joint arthritis Post-Op Diagnosis: Same Anesthesia Technique: MAC, Regional Block Primary Surgeon: Roque Mcclelland Anesthesia Provider: Georgia Randhawa Chief Of Staff Doctor: Marii Mendez EBAmy in mLs: 0 Complications: None Condition: Good
--- NOTE | 2021-01-04 08:09 | OR ---
DATE OF OPERATION: 12/24/2020 SURGEON: Roque Mcclelland MD OPERATION PERFORMED: Right wrist trapeziectomy with TightRope suspension arthroplasty. PREOPERATIVE DIAGNOSIS: Right first carpometacarpal joint arthritis. POSTOPERATIVE DIAGNOSIS: Right first carpometacarpal joint arthritis. ANESTHESIA: MAC with regional Angela block. ANESTHESIA PROVIDER: Georgia Randhawa CRNA MAINTENANCE AND REPAIR WORKER: Marii Mendez PA-C ESTIMATED BLOOD LOSS: 0 mL. COMPLICATIONS: None. CONDITION: Stable. DESCRIPTION OF PROCEDURE: The patient was identified in the preoperative holding area. Proper site was marked and identified by the surgeon. The patient was taken back to the operating theater, where after adequate anesthesia, right upper extremity had a Dewart block done. Right upper extremity was then sterilely prepped and draped in the usual sterile fashion. OR time-out was performed. The patient received 2 g of IV Ancef. At this time, standard dorsal incision was made centered over the first metacarpal joint. This was taken down to the tendon sheath. Tendons were retracted. Neurovascular bundle proximally was protected. Capsulotomy was performed, and takedown of the capsule both dorsally and volarly over the first CMC joint was undertaken at this time. The trapezium was identified. A rongeur as well as an osteotome were used for complete removal of the trapezium. The C- arm fluoroscopy was utilized making sure we obtained all the bony fragments. At this time, the Arthrex TightRope suspension arthroplasty guide pin was placed at the base of the first metacarpal up into the metaphyseal region of the second metacarpal. A small incision was made over the second metacarpal and the guide pin was placed up through this. The Endobutton was found to be secure on the base of the first metacarpal. The sutures were cut, and then the Endobutton was applied to the second metacarpal, and there was tension properly under C-arm fluoroscopy with good bounce back, but not over-tensioning. The patient was able to get the palm flat on the table and oppose the thumb to the small digit. At this time, the knot was tied. Adequate saline was irrigated through all wounds. 3-0 Vicryl was used subcutaneously. Monocryl was used for closure of the skin. The patient was placed in a sterile soft dressing and a radial thumb spica splint and was sent to the PACU in stable condition. EILEEN /[id number]
== END 2020-12-24 14:02 | disposition home or self-care (01) ==
LOC: JD.SDS 10:49
PROVIDERS: ATTEND Orthopaedic Surgery
DX: M18.11 Unilateral primary osteoarthritis of first carpometacarpal joint, right hand (principal); G47.33 Obstructive sleep apnea (adult) (pediatric); G89.29 Other chronic pain; K21.9 Gastro-esophageal reflux disease without esophagitis; Z98.890 Other specified postprocedural states; Z87.891 Personal history of nicotine dependence; Z79.899 Other long term (current) drug therapy; Z01.812 Encounter for preprocedural laboratory examination; Z20.822 Contact with and (suspected) exposure to COVID-19
CPT/HCPCS: 25447; 76000; 87641; C1713; J1170; J2250; J2405; J2704; J3010; J3370; J3490; J7050; J7120; 01830

== ENCOUNTER 2021-12-06 11:58 | Emergency (ER) | payer OTHER ==
[2021-12-06] MEDS ORDERED: Sodium Chloride 0.9% 10 ML Syringe FLUSH PRN (12:26)
[2021-12-06] MEDS ORDERED: Ketorolac 30 MG/ML SDV IVPUSH ONE (12:31)
[2021-12-06] MEDS ORDERED: cefTRIAXone 2 GM in Sodium Chloride 0.9% 100 ML IV ONE (13:41)
[2021-12-06 14:52] VITALS: BP 137/94; PULSE 84
== END 2021-12-06 14:52 | disposition home or self-care (01) ==
LOC: JD.ED 11:58
DX: L03.031 Cellulitis of right toe (principal); K21.9 Gastro-esophageal reflux disease without esophagitis; N40.0 Benign prostatic hyperplasia without lower urinary tract symptoms
CPT/HCPCS: 36415; 80053; 85025; 86140; 96365; 96375; 99283; J0696; J1885

== ENCOUNTER 2022-11-28 08:00 | Emergency (ER) | payer OTHER ==
[2022-11-28 08:22] VITALS: BP 149/103; PULSE 86
[2022-11-28] MEDS ORDERED: Sodium Chloride 0.9% 10 ML Syringe FLUSH PRN (08:37)
[2022-11-28] MEDS ORDERED: HYDROmorphone 0.5 MG/0.5 ML Syringe IVPUSH ONE (08:38)
[2022-11-28] MEDS ORDERED: Iopamidol 612 MG/ML 50 ML SDV IVPUSH ONE ×2 (08:45→09:15)
[2022-11-28] MEDS ORDERED: Sodium Chloride 0.9% 10 ML Syringe FLUSH ONE (08:45)
[2022-11-28] MEDS: Iopamidol 612 MG/ML 100 ML Bottle IVPUSH ONE (09:16)
[2022-11-28] MEDS ORDERED: Ketorolac 30 MG/ML SDV IVPUSH ONE (10:21)
== END 2022-11-28 11:40 | disposition home or self-care (01) ==
LOC: JD.ED 08:00 → SUPCPDRO 08:00 → JD.ED 11:40
DX: S22.42XA Multiple fractures of ribs, left side, initial encounter for closed fracture (principal); K21.9 Gastro-esophageal reflux disease without esophagitis; N40.0 Benign prostatic hyperplasia without lower urinary tract symptoms; Z79.899 Other long term (current) drug therapy; W00.0XXA Fall on same level due to ice and snow, initial encounter
CPT/HCPCS: 36415; 71260; 74177; 80053; 85025; 96374; 99284; J1885; J3490; Q9967